=== PATIENT | male | born 1970 | race Hispanic/Latino ===

== ENCOUNTER → 2022-01-15 | Outpatient (CLI) | payer BC ==
[~2022-01-15] VITALS: Ht 167.6 cm; Wt 71.7 kg
[~2022-01-15] MED LIST: CYCL10TA16 PO; HYDR-3421 PO; REGADENOSON 0.4 MG/5 ML PF SYG IVP SCH
== END ==
LOC: SHCH 08:52 → EDBD 09:30
PROVIDERS: ATTEND Internal Medicine Cardiovascular Disease
DX: R07.9 Chest pain, unspecified (principal)
CPT/HCPCS: 78452; 93017; 96374; A9500 ×2; J2785

== ENCOUNTER 2022-01-18 17:59 | Emergency (ER) | payer BC ==
[~2022-01-18] VITALS: Ht 162.6 cm; Wt 71.7 kg
[2022-01-18 18:26] LABS: BASOPHILS % (AUTO) 0.2 % (0.0-5.0); EOSINOPHILS % (AUTO) 1.1 % (0.0-8.0); HEMATOCRIT 43.4 % (42-54); LYMPHOCYTES % (AUTO) 27.5 % (21.0-51.0); MEAN CORPUSCULAR HEMOGLOBIN 29.4 pg (27.0-33.0); MEAN CORPUSCULAR HGB CONC 34.8 g/dL (32.0-36.0); MEAN CORPUSCULAR VOLUME 84.6 fL (79-99); MONOCYTES % (AUTO) 7.1 % (3.0-13.0); NEUTROPHILS % (AUTO) 63.9 % (40.0-77.0); PLATELET COUNT (AUTO) 267 K/uL (130-400); RED BLOOD CELL COUNT(AUTO) 5.13 MIL/uL (4.50-6.20); RED CELL DISTRIBUTION WIDTH 11.8 % (11.0-15.5); WHITE BLOOD COUNT (AUTO) 12.2 K/uL (4.8-10.8)
[2022-01-18] MEDS ORDERED: KETOROLAC 30MG VIAL (30MG/ML) IVP ONE (18:30)
[2022-01-18] MEDS ORDERED: CYCLOBENZAPRINE HCL 10 MG TABLET PO ONE (18:30)
[2022-01-18 18:47] LABS: B-TYPE NATRIURETIC PEPTIDE < 5 pg/mL (0-100)
[2022-01-18 18:56] LABS: ALBUMIN 4.2 g/dL (3.5-5.0); BILIRUBIN,TOTAL 0.7 mg/dL (0.2-1.0); TOTAL PROTEIN, SERUM 7.3 g/dL (6.0-8.3)
[2022-01-18] MEDS ORDERED: ACETAMINOPHEN 500 MG TABLET PO ONE (19:00)
[2022-01-18] MEDS ORDERED: INSULIN HUMULIN R 100 UNIT/ML 3ML IV ONE (19:00)
[2022-01-18] MEDS ORDERED: 0.9% NACL 500ML IV.SOLN 500 ML IV SCH (19:00)
[2022-01-18] MEDS ORDERED: LORAZEPAM 2 MG/ML 1 ML VIAL IVP ONE (19:30)
[2022-01-18] MEDS ORDERED: HYDR-3421 PO (20:45)
[2022-01-18] MEDS ORDERED: CYCL10TA16 PO (20:45)
[2022-01-18 21:13] VITALS: BP 140/80
== END 2022-01-18 21:34 | disposition home or self-care (01) ==
LOC: EDH 17:59
DX: M94.0 Chondrocostal junction syndrome [Tietze] (principal); R07.89 Other chest pain; E11.9 Type 2 diabetes mellitus without complications; F41.9 Anxiety disorder, unspecified; I10 Essential (primary) hypertension; E78.00 Pure hypercholesterolemia, unspecified; Z79.899 Other long term (current) drug therapy
CPT/HCPCS: 36415; 71045; 80053; 82948; 83880; 84484 ×2; 85025; 93005; 96374; 96375; 99284; J1815; J1885; J2060

== ENCOUNTER → 2025-08-01 | Outpatient (CLI) | payer BC ==
[~2025-08-01] MED LIST changes: +IOHEXOL 350 MG/ML 100ML INFUS..BTL IV ONE; -REGADENOSON 0.4 MG/5 ML PF SYG IVP SCH
--- NOTE | 2025-08-02 08:33 | CARDIOLOGY ---
RAD REPORT: [facility] CT ANGIO RADIOLOGY REPORT: CORONARY CT ANGIOGRAPHY DATE: Aug 02, 2025 QUALITY: Excellent CLINICAL HISTORY AND INDICATION: [ chest pain ] TECHNIQUE: After obtaining a preliminary vacation guide image, contrast imaging performed on an [employer] [id number] scanner. A dedicated, limited window, coronary imaging protocol was used, with single breath-hold, retrospective ECG gating, and automated arrhythmia rejection. 100 cc of low osmolar contrast agent: Omnipaque 350 was delivered via a 18-gauge IV catheter in the right antecubital fossa, using a power injector and followed by 60 cc of normal saline bolus as a chaser. Collimated images were reformatted at 0.5 mm intervals, and sent to an offline independent workstation for interpretation, using 3D anatomic reconstructions: Curved multiplanar reconstructions, maximum intensity projections, and multiplanar imaging. 5 mg IV metoprolol was administered prior to scanning. 0.8 mg SL nitroglycerin was given. CORONARY ARTERY DESCRIPTIONS: The coronary arteries arise in normal position. Left main coronary artery: Normal caliber vessel that bifurcates into the LAD and LCx. There is mixed calcified and noncalcified plaque in the distal left main with 20-25% stenosis. Left anterior descending coronary artery: Normal caliber vessel and gives rise to diagonal and septal branches. There is mixed calcified and noncalcified plaque in the proximal LAD with 80-90% stenosis. There is mixed calcified and noncalcified plaque in the proximal to mid D1 with 80-90% stenosis. Left circumflex coronary artery: Normal caliber, nondominant and gives rise to a large OM branch. There is mixed calcified and noncalcified plaque in the proximal LCx with 80-90% stenosis. Right coronary artery: Large, dominant vessel giving rise to the PL and PDA branches. There is mixed calcified and noncalcified plaque in the proximal RCA with 70-80% stenosis. The distal RCA is sub-totally occluded. There is mixed calcified and noncalcified plaque in the ostial PDA with 80-90% stenosis. CAD-RADs: 4B, multivessel obstructive CAD. Thoracic Aorta: Normal diameter. Sophie Thomas MD Cardiovascular Disease [facility] SOPHIE THOMAS MD Aug 02, 2025 08:33
== END | disposition home or self-care (01) ==
LOC: RAH 07:53
PROVIDERS: ATTEND Internal Medicine Cardiovascular Disease
DX: I25.10 Atherosclerotic heart disease of native coronary artery without angina pectoris (principal); R07.89 Other chest pain
CPT/HCPCS: 75574; J3490; Q9967